=== PATIENT | male | born 1960 | race Two or more races ===

== ENCOUNTER → 2016-11-05 | Day surgery (SDC) | payer OTHER ==
[~2016-11-05] MED LIST: NO MEDICATIONS
--- NOTE | ~2016-11-05 | OR ---
Unit #: [id number] #: [id number] Patient: EMANUEL GARCIA [id number] [address] [address] [id number] O MR#: [id number] NAME: EMANUEL GARCIA ROOM: Date of Procedure: 11/05/2016 Admission Date: 11/05/2016 Surgeon: Sky Johnston M.D. : 1960 Attending Physician: Sky Johnston M.D. OPERATIVE REPORT PREOPERATIVE DIAGNOSIS Screening colonoscopy. POSTOPERATIVE DIAGNOSIS Screening colonoscopy. PROCEDURES PERFORMED 1. Colonoscopy to cecum. 2. Polypectomy with electrocautery snare at 20 cm. ANESTHESIA Monitored anesthesia care. FINDINGS The patient had a normal colonoscopy to the cecum except for a small 4 to 5 mm polyp excised completely at 20 cm with electrocautery snare with good hemostasis. SPECIMENS Sent to pathology. COMPLICATIONS None apparent. CONDITION The patient tolerated the procedure well. INDICATIONS FOR PROCEDURE The patient is a 56-year-old male, who presents at this time for screening colonoscopy. DESCRIPTION OF PROCEDURE After obtaining informed consent, the patient was brought to the endoscopy suite and after adequate monitored anesthesia care, had the colonoscope placed through the anus and advanced to the level of the cecum without difficulty with the lumen always in view. The cecum was normal as was the ileocecal valve. The ascending colon was normal as was the hepatic flexure, transverse colon, splenic flexure, descending colon, and sigmoid colon. At 20 cm, there was a 5 mm polyp present. It was excised completely with electrocautery snare, retrieved with mucus trap and sent to pathology. There was good hemostasis. The remaining portion of the rectosigmoid and rectum were all within normal limits. On retroflexing in Unit #: [id number] #: [id number] Patient: EMANUEL GARCIA the rectum to the anorectal junction, the patient was found to have no significant abnormality. The scope was removed without difficulty. On digital examination, there was good sphincter tone and no masses palpable. The patient went from the endoscopy suite to recovery area in stable condition. RECOMMENDATIONS High-fiber diet, lots of liquids, tucks or wipes p.r.n. Call Saturday for pathology. Dictated by... Ny Putnam/megha TD: 11/05/2016 22:57 JOB #: [id number] CC: Eduardo Acosta M.D. [facility] OPERATIVE REPORT Page 1 of 1 X Sky Johnston MD X PROCEDURE OPERATIVE NOTE
== END | disposition home or self-care (01) ==
LOC: COPS 11:16
PROVIDERS: Surgery
PROC: 0DBE8ZX Excision of Large Intestine, Via Natural or Artificial Opening Endoscopic, Diagnostic (ICD-10-PCS; principal; 2016-11-05 13:00)
DX: Z12.11 Encounter for screening for malignant neoplasm of colon (principal); D12.6 Benign neoplasm of colon, unspecified; Z82.49 Family history of ischemic heart disease and other diseases of the circulatory system; Z88.0 Allergy status to penicillin
CPT/HCPCS: 88305; J2250